=== PATIENT | female | born 1985 | race Caucasian/White ===

== ENCOUNTER 2016-06-02 12:10 | Inpatient (IN) | payer OTHER ==
[~2016-06-02] VITALS: Ht 165.1 cm; Wt 68.5 kg
[2016-06-02] MEDS ORDERED: IPRATROPIUM 0.5MG/ALBUTEROL 2.5MG INH SOL UD 3ML (DUONEB)(J7620) As Ordered ONE (12:57)
[2016-06-02] MEDS ORDERED: KETOROLAC 30 MG/ML VIAL (J1885) As Ordered ONE (13:03)
[2016-06-02] MEDS ORDERED: ONDANSETRON 4MG/2ML VIAL (J2405) As Ordered ONE (13:03)
[2016-06-02] MEDS ORDERED: predniSONE 20 MG TAB As Ordered ONE (13:03)
[2016-06-02] MEDS ORDERED: ACETAMINOPHEN 325 MG TAB As Ordered ONE (13:04)
--- NOTE | 2016-06-02 13:17 | REP ---
Clinical: Acute cough. Technique: PA and lateral. Findings: Basilar right upper lobe consolidation compatible with acute pneumonia. Cardiac silhouette is normal. No effusion. No pneumothorax. Left hemithorax clear. Skeletal structures intact. Impression: Right upper lobe consolidation compatible with acute pneumonia. Signed by Reinaldo Hudson MD 06/02/2016 01:09 P
[2016-06-02] MEDS ORDERED: cefTRIAXone SOD 1 GM VIAL (J0696) As Ordered ONE (13:37)
[2016-06-02 13:44] LABS: BASO % 0.5 % (0.0-1.0); EOS # 0.1 K/mm3 (0.0-0.50); EOS % 0.9 % (0.0-3.0); LARGE UNSTAINED CELL # 0.2 K/mm3 (0.0-0.4); LARGE UNSTAINED CELL % 2.2 % (0.0-4.0); LYMPH # 1.6 K/mm3 (1.5-4.5); LYMPH % 18.9 % (24.0-44.0); MEAN CORPUSCULAR HEMOGLOBIN 27.8 pg (27.0-33.0); MEAN CORPUSCULAR HGB CONC 33.3 g/dl (32.0-36.5); MEAN CORPUSCULAR VOLUME 83.5 fl (80.0-96.0); MONO # 0.7 K/mm3 (0.0-0.8); MONO % 9.6 % (0.0-5.0); NEUTROPHILS # 5.2 K/mm3 (1.8-7.7); NEUTROPHILS % 67.8 % (36.0-66.0); PLATELET COUNT, AUTOMATED 196 k/mm3 (150-450); RED CELL DISTRIBUTION WIDTH 13.7 % (11.5-14.5); WHITE BLOOD COUNT 7.7 K/mm3 (4.0-10.0)
[2016-06-02 14:01] LABS: CONTROL LINE MONO INT CTR LINE PRESENT
[2016-06-02 14:22] LABS: ALBUMIN 3.8 GM/DL (3.2-5.2); ALKALINE PHOSPHATASE 93 U/L (45-117); ALT/SGPT 23 U/L (12-78); ANION GAP 12 MEQ/L (8-16); AST/SGOT 15 U/L (15-37); BILIRUBIN,TOTAL 0.2 MG/DL (0.2-1.0); BLOOD UREA NITROGEN 12 MG/DL (7-18); CARBON DIOXIDE LEVEL 27 MEQ/L (21-32); CHLORIDE LEVEL 99 MEQ/L (98-107); CREATININE FOR GFR 0.67 MG/DL (0.55-1.02); GLOMERULAR FILTRATION RATE > 60.0 (>60); GLUCOSE, FASTING 105 MG/DL (70-105); POTASSIUM SERUM 3.8 MEQ/L (3.5-5.1); SODIUM LEVEL 138 MEQ/L (136-145); TOTAL PROTEIN 7.6 GM/DL (6.4-8.2)
[2016-06-02] MEDS ORDERED: ACET50TAOT PO (14:55)
[2016-06-02] MEDS ORDERED: ROBISYP5 PO (14:55)
[2016-06-02] MEDS ORDERED: IBUP40TA PO (14:55)
[2016-06-02] MEDS ORDERED: ONDANSETRON 4MG/2ML VIAL (J2405) IV PRN (16:00)
[2016-06-02] MEDS ORDERED: IPRATROPIUM 0.5MG/ALBUTEROL 2.5MG INH SOL UD 3ML (DUONEB)(J7620) NEB PRN (16:00)
[2016-06-02] MEDS ORDERED: ACETAMINOPHEN TAB 650MG DOSE (2X325MG) PO PRN (16:00)
[2016-06-02] MEDS ORDERED: AZITHROMYCIN 250 MG TAB As Ordered ONE (16:14)
--- NOTE | 2016-06-02 16:16 | HPEPDOC ---
General Date of Admission 06/02/16 Chief Complaint The patient is a 30-year-old female admitted with a reason for visit of COUGH. Source: Patient Exam Limitations: No limitations History of Present Illness 30[place]year-[place] significant past medical history presents to the ER with a chief complaint of worsening shortness of breath with associated productive cough. The patient notes that her symptoms have been present for the last 8 days and notes that her shortness of breath and productive cough have worsened. The patient states that she was seen by a primary care physician and was told to take Tylenol and Motrin for a possible viral upper respiratory tract infection. The patient does note that she had a temperature as high as 103 over the last 1 week at home. At this time, the patient denies any complaints of chest pain, palpitations, abdominal pain, nausea/vomiting, diarrhea, or any burning on urination. In the ER, a chest x-ray was consistent with a right upper lobe consolidation suggestive of pneumonia. Rapid flu and mono screen were negative in the ER. Group a strep testing is pending. We will admit the patient to the inpatient hospitalist service for treatment of community acquired pneumonia. Home Medications Scheduled PRN Acetaminophen (Acetaminophen) 500 Mg Tab 500 MG PO PRN PAIN (Reported) Guaifenesin/Dextromethorphan (Robitussin Dm 100-10 mg/5Ml) 1 Syp Syp 10 ML PO PRN COUGH (Reported) Ibuprofen (Ibuprofen) 400 Mg Tab 400 MG PO PRN PAIN (Reported) Allergies Coded Allergies: No Known Allergies (Unverified , 06/02/16) Past Medical History Medical History None Surgical History [place] tooth removal Family History Significant Family History: No pertinent family hx Social History * Smoker: non-smoker Alcohol: occationally Drugs: denies Review of Symptoms Other systems 10 point review of systems negative unless otherwise specified in HPI. Physical Examination ENT Exam: Positive: Atraumatic, Mucous membr. moist/pink Neck Exam: Negative: JVD Chest Exam: Positive: Diminished (diminished in the right upper lobe auscultation posteriorly), Rhonchi, Negative: Rales Heart Exam: Positive: Normal S1, Normal S2, Rate Normal Telemetry: Positive: Sinus Abdomen Exam: Positive: Soft, Negative: Tenderness Extremity Exam: Negative: Edema, Tenderness Laboratory Data Labs 24H Laboratory Tests 2 06/02/16 13:16: Blood Urea Nitrogen 12, Creatinine 0.67, Sodium Level 138, Potassium Level 3.8, Chloride Level 99, Carbon Dioxide Level 27, Calcium Level 9.0, Aspartate Amino Transf (AST/SGOT) 15, Alanine Aminotransferase (ALT/SGPT) 23, Alkaline Phosphatase 93, Total Bilirubin 0.2, Total Protein 7.6, Albumin 3.8, Albumin/ Globulin Ratio 1.00, Anion Gap 12, White Blood Count 7.7, Red Blood Count 4.67, Hemoglobin 13.0, Hematocrit 39.0, Mean Corpuscular Volume 83.5, Mean Corpuscular Hemoglobin 27.8, Mean Corpuscular Hemoglobin Concent 33.3, Red Cell Distribution Width 13.7, Platelet Count 196, Neutrophils (%) (Auto) 67.8H, Lymphocytes (%) (Auto) 18.9L, Monocytes (%) (Auto) 9.6H, Eosinophils (%) (Auto) 0.9, Basophils (%) (Auto) 0.5, Neutrophils # (Auto) 5.2, Lymphocytes # (Auto) 1.6, Monocytes # (Auto) 0.7, Eosinophils # (Auto) 0.1, Basophils # (Auto) 0.0, Glomerular Filtration Rate > 60.0, Lactic Acid Level 2.3*H, Large Unclassified Cells # 0.2, Large Unclassified Cells % 2.2, Monoscreen NEGATIVE CBC/BMP Laboratory Tests 06/02/16 13:16 Calcium Level 9.0, Aspartate Amino Transf (AST/SGOT) 15, Alanine Aminotransferase (ALT/SGPT) 23, Alkaline Phosphatase 93, Total Bilirubin 0.2, Total Protein 7.6, Albumin 3.8, Red Blood Count 4.67, Mean Corpuscular Volume 83.5, Mean Corpuscular Hemoglobin 27.8, Mean Corpuscular Hemoglobin Concent 33.3 , Red Cell Distribution Width 13.7, Neutrophils (%) (Auto) 67.8 H, Lymphocytes ( %) (Auto) 18.9 L, Monocytes (%) (Auto) 9.6 H, Eosinophils (%) (Auto) 0.9, Basophils (%) (Auto) 0.5, Neutrophils # (Auto) 5.2, Lymphocytes # (Auto) 1.6, Monocytes # (Auto) 0.7, Eosinophils # (Auto) 0.1, Basophils # (Auto) 0.0 [facility] 06/02/16 Blood Culture, Received Pending 06/02/16 Blood Culture, Received Pending 06/02/16 Group A Streptococcus Screen (ERIKA), Received Pending 06/02/16 Influenza Virus Type A Antigen - Final, Complete 06/02/16 Influenza Virus Type B Antigen - Final, Complete Assessment/Plan Problems: (1) Community acquired pneumonia Status: Acute Response to Treatment: Stable Problem Text: Chest x-ray suggestive of right upper lobe consolidation consistent with pneumonia Rapid flu, monoscreen negative in the ER, group a strep testing pending Respiratory panel ordered Blood, sputum cultures ordered We will start the patient on Rocephin and azithromycin for community acquired pneumonia DuoNeb's every 4 hours as needed Tylenol when necessary for fever We will continue to monitor the patient's status. (2) Lactic acidosis Status: Acute Problem Text: Slightly elevated lactic acid level of 2.3 likely secondary to above IV fluid hydration ordered We'll repeat lactate level. Plan / VTE VTE Prophylaxis Ordered?: Yes JULIET GONZALEZ MD Jun 02, 2016 16:16
--- NOTE | 2016-06-02 17:16 | EDDOCDS ---
Nurse's Notes [facility] Name: Nikole Stewart Age: 30 yrs Sex: Female : 1985 Arrival Date: 06/02/2016 Time: 12:10 Bed I2 / M2 Private MD: NO PRIMARY PHYSICIAN, . Diagnosis: Pneumonia, unspecified organism-Right Upper Lobe, Elevated Lactic Acid Presentation: 06/02 12:13 Presenting complaint: Patient states: Cough with fever and chills for 8 days. Adult dwg Sepsis Screening: The patient does not have new or worsening altered mentation. Patient's respiratory rate is less than 22. Systolic blood pressure is greater than 100. Patient has a qSOFA score of 0- Negative Sepsis Screen. Suicide/Homicide risk assessment- the patient denies having any suicidal and/or homicidal ideations and does not present with any other emotional, behavioral or mental health complaints. 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 Transition of care: patient was not received from another setting of care. 12:13 Method Of Arrival: Walkin/Carried/Asstd dwg 12:13 Acuity: NILSA Level 3 mlb1 12:27 Acuity level changed due to complexity of care. mlb1 Triage Assessment: 12:16 General: Appears uncomfortable. Pain: Pain currently is 7 out of 10 on a pain scale. Pt dwg Declines HIV testing. 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 OTC cough meds (Last dose: 06/02/2016 01:00) 2. Tylenol 325 mg Oral tab 2 tabs as needed (Last dose: 06/02/2016 01:00) 3. Motrin 400 mg Oral tab as needed (Last dose: 06/02/2016 01:00) - PMHx: none; - PSHx: [place] teeth extraction; - Social history: Smoking status: Patient states was never smoker of tobacco. No barriers to communication noted, The patient speaks fluent Upper Sorbian. - Family history: Not pertinent. - : The pt / caregiver states he / she is not on anticoagulants. Home medication list is obtained from the patient. - Exposure Risk Screening:: None identified. Screenin:31 Screening information is obtained from the patient. Fall risk: No risks identified. dls Assistance ADL's: requires no assistance with activities of daily living. Abuse/DV Screen: The patient / caregiver reports he/she is: not in a situation that causes fear, pain or injury. Nutritional screening: No deficits noted. Advance Directives: Currently, there is no health care proxy. There is no active DNR order. There is no living will. 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 Advance directive information has not previously been placed in an [facility] medical record. home support is adequate. Assessment: 13:30 General: Appears in no apparent distress, Behavior is cooperative. General: receiving ms2 nebulizer tx's. General: harsh cough noted. Neurological: Level of Consciousness is awake, alert, obeys commands. Neurological: Level of Consciousness is awake, alert, obeys commands. Respiratory: No deficits noted. Airway is patent Respiratory effort is even, unlabored, Respiratory pattern is regular, symmetrical. Derm: Skin is pink, warm & dry. Musculoskeletal: Range of motion intact in all extremities. 14:28 General: IV bolus infusing site right antecubital remains patent and clear pt states dls feeling improved.. 14:58 General: Dr Mariano here to examine pt and write admission orders.. dls 16:38 General: IV bolus infused site remains cleat pt ambulatory to bathroom urine spec dls obtained as well as respiratory panel. NS infusing \T\ 80cc /hr per admission orders pt medicated po also per admission order. Pt has occasional cough sputum cup given for spec. Vital signs remain stable awaiting bed assingment.. Vital Signs: 12:11 BP 148 / 80; Pulse 99; Resp 18; Temp 102.0(O); Pulse Ox 99% ; Weight 65.77 kg; Height 5 elp ft. 5 in. (165.10 cm); Pain 6/10; 14:31 BP 118 / 60; Pulse 111; Resp 18; Temp 99.9(O); Pulse Ox 97% on R/A; Pain 4/10; jrd 16:46 BP 116 / 62; Pulse 79; Resp 16; Temp 98.1(O); Pain 3/10; jrd 12:11 Body Mass Index 24.13 (65.77 kg, 165.10 cm) elp Vitals: 12:11 Log In Time: June 02, 2016 at 12:09. elp 12:51 Strep Screen is obtained and tested: Negative, a GATSNEG culture is ordered in [facility] rs3 and sent. ED Course: 12:10 Patient visited by Marisa Fonseca PCA. elp 12:10 Patient moved to Waiting elp 12:11 NO PRIMARY PHYSICIAN, . is Private Physician. elp 12:12 Patient visited by Marisa Fonseca PCA. elp 12:12 Patient moved to Pre RCE elp 12:14 Triage Initiated dwg 12:19 Patient moved to Triage 3 rs3 12:26 Sabina Joseph PA-C is PHCP. ef1 12:26 Makenna Childs MD is Attending Physician. ef1 12:28 Patient visited by Sabina Joseph PA-C. ef1 12:47 Patient moved to I2 / M2 rn1 12:51 -Influenza A&B Rapid Antigen - Nose Sent. rs3 12:59 Patient visited by Zaid Delacruz,ROSE. ms2 13:25 Chest, 2 View (pa\E\lat) Returned. EDMS 13:28 Inserted peripheral IV: 20gauge IV in left antecubital area Patient tolerated the ms2 procedure well. No procedures done that require assistance. 13:30 Patient visited by Sabina Joseph PA-C. ef1 13:30 -Blood Culture Sent. ms2 13:30 BLOOD CULTURES Sent. ms2 13:31 Lactic Acid (Cedeño tube on ice) Sent. ms2 13:31 Complete Comphrensive Metabolic Sent. ms2 13:31 CBC with Diff Sent. ms2 13:31 Monoscreen Sent. ms2 13:35 Patient visited by Zaid Delacruz,ROSE. ms2 14:06 Patient visited by Sabina Joseph PA-C. ef1 14:17 [facility] Payment Agreement was scanned into [employer] and attached to record. jp5 14:31 Patient name changed from Nikole\S\\S\Stewart\S\ to Nikole\S\Samina\S\Stewart. EDMS 14:31 The patient / caregiver is instructed regarding the plan of care and ED course. dls 14:32 Patient visited by Sabina Joseph PA-C. ef1 14:32 Patient visited by Carlos Lorenz PCA. jrd 14:39 Roderick Mariano is Hospitalizing Provider. ef1 16:31 RESPIRATORY PANEL Sent. dls 16:47 Patient visited by Carlos Lorenz PCA. jrd Administered Medications: 03:20 Drug: Acetaminophen 975 mg [acetaminophen 325 mg tablet (3 tabs)] Route: PO; ms2 12:55 Drug: Albuterol-Ipratropium 1 neb [ipratropium-albuterol 0.5 mg-3 mg(2.5 mg base)/3 mL js11 nebulization soln (1 neb)] Route: Nebulizer; 13:15 Drug: Albuterol-Ipratropium 1 neb [ipratropium-albuterol 0.5 mg-3 mg(2.5 mg base)/3 mL js11 nebulization soln (1 neb)] Route: Nebulizer; 13:24 Drug: NS 0.9% 1000 ml [sodium chloride 0.9 % intravenous solution] Route: IV; Rate: ms2 bolus; Site: right antecubital; 13:25 Drug: Ondansetron 4 mg Route: IVP; Site: right antecubital; ms2 13:26 Drug: ketorolac 30 mg [ketorolac 30 mg/mL (1 mL) injection solution (1 mL)] Route: IVP; ms2 Site: right antecubital; 13:28 Drug: Albuterol-Ipratropium 1 neb [ipratropium-albuterol 0.5 mg-3 mg(2.5 mg base)/3 mL js11 nebulization soln (1 neb)] Route: Nebulizer; 13:28 Drug: predniSONE 60 mg [prednisone 20 mg tablet (3 tabs)] Route: PO; ms2 13:42 Drug: cefTRIAXone 1 grams Route: IVPB; Infused Over: 30 mins; Site: right antecubital; ms2 14:30 Follow up: Response: No Adverse Reaction; IV Status: Completed infusion dls 15:10 Drug: NS 0.9% 1000 ml [sodium chloride 0.9 % intravenous solution] Route: IV; Rate: dls bolus; Site: right antecubital; 16:37 Follow up: IV Intake: 2000ml dls 16:34 Drug: NS 0.9% 1000ml at 80cc/hr 1000 ml Route: IV; Rate: 80 mL/hr; Site: right dls antecubital; 16:36 Drug: azithromycin 500 mg [azithromycin 250 mg tablet (2 tabs)] Route: PO; dls Intake: 16:37 IV: 2000.00ml; Total: 2000.00ml. dls RT: 12:55 Initial Med Neb Given as ordered Patient was instructed and evaluated on procedure js11 Patient tolerated procedure well without adverse effect. Respiratory: Breath sounds are diminished bilaterally. 13:15 Subsequent Med Neb Given as ordered Patient tolerated procedure well without adverse js11 effect. Respiratory: Breath sounds are diminished bilaterally. 13:28 Subsequent Med Neb Given as ordered Patient tolerated procedure well without adverse js11 effect. Respiratory: Breath sounds are diminished bilaterally. Order Results: Lab Order: -Influenza A&B Rapid Antigen - Nose; SPEC'M 06/02/16 12:43 Test: INFLUENZA A RAPID SCR by ICA; Value: INFLUENZA A RESULTS NEGATIVE; Status: F Test: INFLUENZA A RAPID SCR by ICA; Value: Comments:; Status: F Test: INFLUENZA B RAPID SCR by ICA; Value: INFLUENZA B RESULTS NEGATIVE; Status: F Test Note: ; The Influenza test is a direct rapid immunoassay for the qualitative detection of Influenza viral antigen. Cell culture (Viral Culture) testing should be considered to confirm NEGATIVE results and to assist in detecting other viruses that can provide similar clinical symptoms. Please contact the lab within 24 hours ([phone]) if confirmatory testing is desired. Lab Order: Monoscreen; SPEC'M 06/02/16 13:16 Test: MONO SCRN; Value: NEGATIVE; Range: NEGATIVE; Status: F Lab Order: CBC with Diff; SPEC'M 06/02/16 13:16 Test: WHITE BLOOD COUNT; Value: 7.7; Range: 4.0-10.0; Units: K/mm3; Status: F Test: RED BLOOD COUNT; Value: 4.67; Range: 4.00-5.40; Units: M/mm3; Status: F Test: HEMOGLOBIN; Value: 13.0; Range: 12.0-16.0; Units: g/dl; Status: F Test: HEMATOCRIT; Value: 39.0; Range: 36.0-47.0; Units: %; Status: F Test: MEAN CORPUSCULAR VOLUME; Value: 83.5; Range: 80.0-96.0; Units: fl; Status: F Test: MEAN CORPUSCULAR HEMOGLOBIN; Value: 27.8; Range: 27.0-33.0; Units: pg; Status: F Test: MEAN CORPUSCULAR HGB CONC; Value: 33.3; Range: 32.0-36.5; Units: g/dl; Status: F Test: RED CELL DISTRIBUTION WIDTH; Value: 13.7; Range: 11.5-14.5; Units: %; Status: F Test: PLATELET COUNT, AUTOMATED; Value: 196; Range: 150-450; Units: k/mm3; Status: F Test: NEUTROPHILS %; Value: 67.8; Range: 36.0-66.0; Abnormal: Above high normal; Units: %; Status: F Test: LYMPH %; Value: 18.9; Range: 24.0-44.0; Abnormal: Below low normal; Units: %; Status: F Test: MONO %; Value: 9.6; Range: 0.0-5.0; Abnormal: Above high normal; Units: %; Status: F Test: EOS %; Value: 0.9; Range: 0.0-3.0; Units: %; Status: F Test: BASO %; Value: 0.5; Range: 0.0-1.0; Units: %; Status: F Test: LARGE UNSTAINED CELL %; Value: 2.2; Range: 0.0-4.0; Units: %; Status: F Test: NEUTROPHILS #; Value: 5.2; Range: 1.8-7.7; Units: K/mm3; Status: F Test: LYMPH #; Value: 1.6; Range: 1.5-4.5; Units: K/mm3; Status: F Test: MONO #; Value: 0.7; Range: 0.0-0.8; Units: K/mm3; Status: F Test: EOS #; Value: 0.1; Range: 0.0-0.50; Units: K/mm3; Status: F Test: BASO #; Value: 0.0; Range: 0.0-0.2; Units: K/mm3; Status: F Test: LARGE UNSTAINED CELL #; Value: 0.2; Range: 0.0-0.4; Units: K/mm3; Status: F Lab Order: Complete Comphrensive Metabolic; SPEC'M 06/02/16 13:16 Test: GLUCOSE, FASTING; Value: 105; Range: 70-105; Units: MG/DL; Status: F Test: BLOOD UREA NITROGEN; Value: 12; Range: 7-18; Units: MG/DL; Status: F Test: CREATININE FOR GFR; Value: 0.67; Range: 0.55-1.02; Units: MG/DL; Status: F Test: SODIUM LEVEL; Range: 136-145; Units: MEQ/L; Status: I Test: POTASSIUM SERUM; Range: 3.5-5.1; Units: MEQ/L; Status: I Test: CHLORIDE LEVEL; Range: 98-107; Units: MEQ/L; Status: I Test: CARBON DIOXIDE LEVEL; Range: 21-32; Units: MEQ/L; Status: I Test: ANION GAP; Range: 8-16; Units: MEQ/L; Status: I Test: CALCIUM LEVEL; Range: 8.5-10.1; Units: MG/DL; Status: I Test: AST/SGOT; Range: 15-37; Units: U/L; Status: I Test: ALT/SGPT; Range: 12-78; Units: U/L; Status: I Test: ALKALINE PHOSPHATASE; Range: 45-117; Units: U/L; Status: I Test: BILIRUBIN,TOTAL; Range: 0.2-1.0; Units: MG/DL; Status: I Test: TOTAL PROTEIN; Range: 6.4-8.2; Units: GM/DL; Status: I Test: ALBUMIN; Range: 3.2-5.2; Units: GM/DL; Status: I Test: ALBUMIN/GLOBULIN RATIO; Range: 1.00-1.93; Status: I Test: GLOMERULAR FILTRATION RATE; Value: > 60.0; Range: >60; Status: F Test: SODIUM LEVEL; Value: 138; Range: 136-145; Units: MEQ/L; Status: F Test: POTASSIUM SERUM; Value: 3.8; Range: 3.5-5.1; Units: MEQ/L; Status: F Test: CHLORIDE LEVEL; Value: 99; Range: 98-107; Units: MEQ/L; Status: F Test: CARBON DIOXIDE LEVEL; Value: 27; Range: 21-32; Units: MEQ/L; Status: F Test: ANION GAP; Value: 12; Range: 8-16; Units: MEQ/L; Status: F Test: CALCIUM LEVEL; Value: 9.0; Range: 8.5-10.1; Units: MG/DL; Status: F Test: AST/SGOT; Value: 15; Range: 15-37; Units: U/L; Status: F Test: ALT/SGPT; Value: 23; Range: 12-78; Units: U/L; Status: F Test: ALKALINE PHOSPHATASE; Value: 93; Range: 45-117; Units: U/L; Status: F Test: BILIRUBIN,TOTAL; Value: 0.2; Range: 0.2-1.0; Units: MG/DL; Status: F Test: TOTAL PROTEIN; Value: 7.6; Range: 6.4-8.2; Units: GM/DL; Status: F Test: ALBUMIN; Value: 3.8; Range: 3.2-5.2; Units: GM/DL; Status: F Test: ALBUMIN/GLOBULIN RATIO; Value: 1.00; Range: 1.00-1.93; Status: F Test Note: ; Units are mL/min/1.73 m2 Chronic Kidney Disease Staging per NKF: Stage I & II GFR >=60 Normal to Mildly Decreased Stage III GFR 30-59 Moderately Decreased Stage IV GFR 15-29 Severely Decreased Stage V GFR <15 Very Little GFR Left ESRD GFR <15 on TISSUE COORDINATOR Lab Order: Lactic Acid (Cedeño tube on ice); SPEC'M 06/02/16 13:16 Test: LACTIC ACID LEVEL, LACTATE; Value: 2.3; Range: 0.4-2.0; Abnormal: Above upper panic limits; Units: MMOL/L; Status: F Lab Order: UA; SPEC'M 06/02/16 16:15 Test: APPEARANCE, URINE; Value: CLEAR; Range: CLEAR; Status: F Test: COLOR, URINE; Value: YELLOW; Range: YELLOW; Status: F Test: PH,URINE; Value: 5.0; Range: 5.0-9.0; Units: UNITS; Status: F Test: SPECIFIC GRAVITY URINE AUTO; Value: 1.006; Range: 1.002-1.035; Status: F Test: PROTEIN, URINE AUTO; Value: NEGATIVE; Range: NEGATIVE; Units: mg/dL; Status: F Test: GLUCOSE, URINE (UA) AUTO; Value: NEGATIVE; Range: NEGATIVE; Units: mg/dL; Status: F Test: KETONE, URINE AUTO; Value: NEGATIVE; Range: NEGATIVE; Units: mg/dL; Status: F Test: UROBILINOGEN, URINE AUTO; Value: 0.2; Range: 0.0-2.0; Units: mg/dL; Status: F Test: BILIRUBIN, URINE AUTO; Value: NEGATIVE; Range: NEGATIVE; Status: F Test: NITRITE, URINE AUTO; Value: NEGATIVE; Range: NEGATIVE; Status: F Test: LEUKOCYTE ESTERASE, URINE AUTO; Value: NEGATIVE; Range: NEGATIVE; Status: F Test: BLOOD, URINE BLOOD; Value: NEGATIVE; Range: NEGATIVE; Status: F Test: WBC, URINE AUTO; Value: 1; Range: 0-3; Units: /HPF; Status: F Test: RBC, URINE AUTO; Value: 3; Range: 0-3; Units: /HPF; Status: F Test: BACTERIA, URINE AUTO; Value: 1+; Range: NEGATIVE; Abnormal: Above high normal; Status: F Test: SQUAMOUS EPITHELIAL CELL UR AU; Value: 3; Range: 0-6; Units: /HPF; Status: F Test: MUCUS, URINE; Value: SMALL; Range: NEGATIVE; Status: F Test: HYALINE CAST, URINE AUTO; Value: 0; Range: 0-1; Units: /LPF; Status: F Radiology Order: Chest, 2 View (pa\E\lat) Test: Chest, 2 View (pa\E\lat) REASON FOR EXAMINATION: Cough; Clinical: Acute cough.; ; Technique: PA and lateral.; ; Findings:; Basilar right upper lobe consolidation compatible with acute pneumonia. Cardiac; silhouette is normal. No effusion. No pneumothorax. Left hemithorax clear.; Skeletal structures intact.; ; Impression:; Right upper lobe consolidation compatible with acute pneumonia.; ; ; Signed by; Reinaldo Hudson MD 06/02/2016 01:09 P; Outcome: 14:40 Decision to Hospitalize by Provider. ef1 17:13 Discharge Assessment: Patient awake, alert and oriented x 3. No cognitive and/or dls functional deficits noted. Patient verbalized understanding of disposition instructions. patient administered narcotics - no. The following High Risk Discharge criteria are identified: None. Admitted to Med/Surg accompanied by tech, via stretcher, with chart. Condition: stable Condition: improved. Discharge instructions given to. No special radiology studies were completed. Admission hand-off: Report Faxed Fax receipt verified by [place]ma. Property :Personal belongings accompany Pt. 17:15 Patient left the ED. dls Signatures: Dispatcher [employer] EDZaid SanchesRN RN ms2 Saturnino Reddy RN RN milesg Jade Zhong RN RN dls Cr Yousif RN RN mlb1 Sabina Joseph, PAAshvinC PA-C ef1 Kady SandersRN RN rs3 Robbie Julio js11 Marisa Fonseca, BLOCKER AND CUTTER CONTACT LENS BLOCKER AND CUTTER CONTACT LENS Carlos Hilario, BLOCKER AND CUTTER CONTACT LENS BLOCKER AND CUTTER CONTACT LENS Benito Hughes rn1 Durga Franks jp5 Corrections: (The following items were deleted from the chart) 12:27 12:13 Acuity: NILSA Level 5 fly mlb1 MTDJames
--- NOTE | 2016-06-02 17:16 | EDDOCDS ---
Physician Documentation [facility] Name: Nikole Stewart Age: 30 yrs Sex: Female : 1985 Arrival Date: 06/02/2016 Time: 12:10 Bed I2 / M2 Private MD: NO PRIMARY PHYSICIAN, . Disposition: 06/02/16 14:40 Hospitalization ordered by Roderick Mariano for Inpatient Admission. Preliminary diagnosis is Pneumonia, unspecified organism - Right Upper Lobe, Elevated Lactic Acid. - Bed requested for 4 [place]. - Status is Inpatient Admission. dls - Condition is Stable. - Problem is new. - Symptoms have improved. Historical: - Allergies: no known allergies; - Home Meds: 1. OTC cough meds (Last dose: 06/02/2016 01:00) 2. Tylenol 325 mg Oral tab 2 tabs as needed (Last dose: 06/02/2016 01:00) 3. Motrin 400 mg Oral tab as needed (Last dose: 06/02/2016 01:00) - PMHx: none; - PSHx: [place] teeth extraction; - Social history: Smoking status: Patient states was never smoker of tobacco. No barriers to communication noted, The patient speaks fluent Slovak. - Family history: Not pertinent. - : The pt / caregiver states he / she is not on anticoagulants. Home medication list is obtained from the patient. - Exposure Risk Screening:: None identified. 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 5 in. (165.10 cm); Pain 6/10; 14:31 BP 118 / 60; Pulse 111; Resp 18; Temp 99.9(O); Pulse Ox 97% on R/A; Pain 4/10; jrd 16:46 BP 116 / 62; Pulse 79; Resp 16; Temp 98.1(O); Pain 3/10; jrd 12:11 Body Mass Index 24.13 (65.77 kg, 165.10 cm) elp MDM: 12:41 Acetaminophen Tablet 975 mg PO once ordered. ef1 12:41 Fluid Challenge ordered. ef1 12:41 Strep Screen, Nursing ordered. ef1 12:41 Obtain sample by nasopharyngeal swab ordered. ef1 12:41 IV Saline Lock ordered. ef1 12:41 NS 0.9% 1000 ml IV at bolus once ordered. ef1 12:41 ketorolac 30 mg IVP once ordered. ef1 12:41 Ondansetron 4 mg IVP once ordered. ef1 12:41 Albuterol-Ipratropium 1 neb Nebulizer every 20 minutes x3 ordered. ef1 12:41 Call Respiratory ordered. ef1 12:41 predniSONE 60 mg PO once; administer with food or milk ordered. ef1 12:41 -Blood Culture (Adults Only), peripheral from different site, or from device/port/PICC ef1 etc. if present ordered. 12:42 -Influenza A&B Rapid Antigen - Nose Ordered. EDMS 12:42 Monoscreen Ordered. EDMS 12:42 CBC with Diff Ordered. EDMS 12:42 Complete Comphrensive Metabolic Ordered. EDMS 12:42 Lactic Acid (Cedeño tube on ice) Ordered. EDMS 12:42 UA Ordered. EDMS 12:42 Urine Culture Ordered. EDMS 12:42 Chest, 2 View (pa\E\lat) Ordered. EDMS 12:43 -Blood Culture Ordered. EDMS 12:48 Call Respiratory complete. jrd 12:50 -Blood Culture (Adults Only), peripheral from different site, or from device/port/PICC jrd etc. if present complete. 12:51 BLOOD CULTURES Ordered. EDMS 12:51 GATS (NEGATIVE STREP SCREEN) Ordered. EDMS 13:30 -Influenza A&B Rapid Antigen - Nose Reviewed. ef1 13:30 Chest, 2 View (pa\E\lat) Reviewed. ef1 13:35 cefTRIAXone 1 grams IVPB once over 30 mins; dilute in 50mL of NS or D5W ordered. ef1 14:17 [facility] [place] [facility] Payment Agreement was scanned into [employer] and attached to record. jp5 14:17 Financial registration complete. jp5 14:26 NS 0.9% 1000 ml IV at bolus once ordered. ef1 14:26 CBC with Diff Reviewed. ef1 14:26 Lactic Acid (Cedeño tube on ice) Reviewed. ef1 14:26 Monoscreen Reviewed. ef1 14:26 Complete Comphrensive Metabolic Reviewed. ef1 14:33 BED REQUEST+ADM ordered. EDMS 15:54 Admission / Observation Status ordered. EDMS 15:54 REGULAR DIET ordered. EDMS 15:54 RESPIRATORY PANEL Ordered. EDMS 15:57 LACTIC ACID LEVEL, LACTATE Ordered. EDMS 16:14 SPUTUM CULTURE AND GRAM STAIN Ordered. EDMS 16:34 NS 0.9% 1000ml at 80cc/hr 1000 ml IV at 80 mL/hr Per protocol ordered. dls 16:36 azithromycin 500 mg PO once ordered. dls Administered Medications: 03:20 Drug: Acetaminophen 975 mg [acetaminophen 325 mg tablet (3 tabs)] Route: PO; ms2 12:55 Drug: Albuterol-Ipratropium 1 neb [ipratropium-albuterol 0.5 mg-3 mg(2.5 mg base)/3 mL js11 nebulization soln (1 neb)] Route: Nebulizer; 13:15 Drug: Albuterol-Ipratropium 1 neb [ipratropium-albuterol 0.5 mg-3 mg(2.5 mg base)/3 mL js11 nebulization soln (1 neb)] Route: Nebulizer; 13:24 Drug: NS 0.9% 1000 ml [sodium chloride 0.9 % intravenous solution] Route: IV; Rate: ms2 bolus; Site: right antecubital; 13:25 Drug: Ondansetron 4 mg Route: IVP; Site: right antecubital; ms2 13:26 Drug: ketorolac 30 mg [ketorolac 30 mg/mL (1 mL) injection solution (1 mL)] Route: IVP; ms2 Site: right antecubital; 13:28 Drug: Albuterol-Ipratropium 1 neb [ipratropium-albuterol 0.5 mg-3 mg(2.5 mg base)/3 mL js11 nebulization soln (1 neb)] Route: Nebulizer; 13:28 Drug: predniSONE 60 mg [prednisone 20 mg tablet (3 tabs)] Route: PO; ms2 13:42 Drug: cefTRIAXone 1 grams Route: IVPB; Infused Over: 30 mins; Site: right antecubital; ms2 14:30 Follow up: Response: No Adverse Reaction; IV Status: Completed infusion dls 15:10 Drug: NS 0.9% 1000 ml [sodium chloride 0.9 % intravenous solution] Route: IV; Rate: dls bolus; Site: right antecubital; 16:37 Follow up: IV Intake: 2000ml dls 16:34 Drug: NS 0.9% 1000ml at 80cc/hr 1000 ml Route: IV; Rate: 80 mL/hr; Site: right dls antecubital; 16:36 Drug: azithromycin 500 mg [azithromycin 250 mg tablet (2 tabs)] Route: PO; dls Signatures: Dispatcher [employer] Saturnino Agosto RN RN [facility] Wilmer , ROSE Lee RN Jade Purcell RN RN dls Feola, Sabina, PA-C PA-C ef1 Carlos Lorenz, DECORATOR CONSULTANT DECORATOR CONSULTANT jrd Durga Franks jp5 Zaid Delacruz RN ms2 Robbie Julio js11 The chart was reviewed and I authenticate all verbal orders and agree with the evaluation and treatment provided.Attachments: 14:17 COUNT INCLUDES THE [facility] Payment Agreement jp5 MTDD
[2016-06-02 17:20] VITALS: BP 104/61
[2016-06-02] MEDS: NS 1,000 ML IV SCH ×2 (17:40→22:01)
[2016-06-02] MEDS: IPRATROPIUM 0.5MG/ALBUTEROL 2.5MG INH SOL UD 3ML (DUONEB)(J7620) NEB SCH ×2 (19:34→22:56)
[2016-06-02 22:00] VITALS: BP_SYST 109; BP_SYST 117; BP_DIAS 67; BP_DIAS 68
[2016-06-02] MEDS ORDERED: NS 1,000 ML IV ONE (22:00)
[2016-06-02] MEDS: KETOROLAC 30 MG/ML VIAL (J1885) IV SCH (22:00)
[2016-06-03] MEDS: NS 1,000 ML IV SCH ×4 (01:05→21:11)
[2016-06-03] MEDS: cefTRIAXone SOD 1 GM in D5W MINI-BAG PLUS 50 ML IV SCH ×2 (01:05→13:17)
[2016-06-03] MEDS: guaiFENesin DM LIQ 10ML UD PO PRN (01:11)
[2016-06-03 06:00] VITALS: BP 116/64
[2016-06-03] MEDS: KETOROLAC 30 MG/ML VIAL (J1885) IV SCH ×3 (06:02→21:11)
[2016-06-03 06:26] LABS: MEAN CORPUSCULAR HEMOGLOBIN 27.7 pg (27.0-33.0); MEAN CORPUSCULAR HGB CONC 32.7 g/dl (32.0-36.5); MEAN CORPUSCULAR VOLUME 84.9 fl (80.0-96.0); RED CELL DISTRIBUTION WIDTH 12.8 % (11.5-14.5); WHITE BLOOD COUNT 4.2 K/mm3 (4.0-10.0)
[2016-06-03 06:38] LABS: ANION GAP 8 MEQ/L (8-16); BLOOD UREA NITROGEN 8 MG/DL (7-18); CALCIUM LEVEL 7.7 MG/DL (8.5-10.1); CARBON DIOXIDE LEVEL 24 MEQ/L (21-32); CHLORIDE LEVEL 108 MEQ/L (98-107); CREATININE FOR GFR 0.37 MG/DL (0.55-1.02); GLOMERULAR FILTRATION RATE > 60.0 (>60); GLUCOSE, FASTING 100 MG/DL (70-105); POTASSIUM SERUM 4.1 MEQ/L (3.5-5.1); SODIUM LEVEL 140 MEQ/L (136-145)
[2016-06-03] MEDS: IPRATROPIUM 0.5MG/ALBUTEROL 2.5MG INH SOL UD 3ML (DUONEB)(J7620) NEB SCH ×4 (07:45→22:27)
[2016-06-03] MEDS: AZITHROMYCIN 250 MG TAB PO SCH (08:58)
[2016-06-03] MEDS ORDERED: CALCIUM GLUCONATE 1,000 MG in D5W MINI-BAG PLUS 100 ML IV ONE (09:00)
[2016-06-03 14:00] VITALS: BP 108/72
--- NOTE | 2016-06-03 14:08 | IPNPDOC ---
Text Note Date of Service The patient was seen on 06/03/16 at 14:01. NOTE Subjective: Pt states her SOB has improved. Denies CP/Palpitation. Objective: Vitals: (see below) General: No acute distress, laying comfortably in bed. HEENT: Moist mucous membranes. Neck: No JVD or lymphadenopathy Cardiac: RRR, No murmurs Pulm: Coarse crackles at the right. No wheezing, no rhonchi Abd: NT/ND + BS Ext: No edema or cyanosis Labs (see below) Images: CXR 06/02/16 Impression: Right upper lobe consolidation compatible with acute pneumonia. Assessment/Plan CAP - On azithromycin and Rocephin. Lactic acid improving. No leukocytosis, hypoxia, tachycardia. Cont IVF. Rapid flu negative. Blood/sputum cx pending. DVT prophy: Enoxaparin Dispo: Plan to d/c in the next 24 hours if continues to clinically improve. VS,Fishbone, I+O VS, Fishbone, I+O Laboratory Tests 06/03/16 05:52 Calcium Level 7.7 L, Red Blood Count 3.50 L, Mean Corpuscular Volume 84.9, Mean Corpuscular Hemoglobin 27.7, Mean Corpuscular Hemoglobin Concent 32.7, Red Cell Distribution Width 12.8 Vital Signs Date Time Temp Pulse Resp B/P Pulse Ox O2 Delivery O2 Flow Rate FiO2 06/03/16 09:00 Room Air 06/03/16 06:00 97.6 67 19 116/64 97 I&O- Last 24 Hours up to 6 AM 06/03/16 05:59 Intake Total 2000 ml Output Total 0 ml Balance 2000 ml NITZA MENDOZA MD Jun 03, 2016 14:08
[2016-06-03] MEDS: ENOXAPARIN 40 MG/0.4 ML SYRINGE (J1650) SC SCH (14:50)
[2016-06-03 22:00] VITALS: BP 97/54
[2016-06-04] MEDS: cefTRIAXone SOD 1 GM in D5W MINI-BAG PLUS 50 ML IV SCH (02:02)
[2016-06-04] MEDS: guaiFENesin DM LIQ 10ML UD PO PRN (05:52)
[2016-06-04] MEDS: KETOROLAC 30 MG/ML VIAL (J1885) IV SCH (05:52)
[2016-06-04 06:00] VITALS: BP 113/69
[2016-06-04 06:01] LABS: MEAN CORPUSCULAR HEMOGLOBIN 27.6 pg (27.0-33.0); MEAN CORPUSCULAR HGB CONC 32.8 g/dl (32.0-36.5); MEAN CORPUSCULAR VOLUME 84.2 fl (80.0-96.0); RED CELL DISTRIBUTION WIDTH 14.1 % (11.5-14.5); WHITE BLOOD COUNT 7.7 K/mm3 (4.0-10.0)
[2016-06-04 06:17] LABS: ANION GAP 9 MEQ/L (8-16); BLOOD UREA NITROGEN 6 MG/DL (7-18); CALCIUM LEVEL 7.9 MG/DL (8.5-10.1); CARBON DIOXIDE LEVEL 24 MEQ/L (21-32); CHLORIDE LEVEL 112 MEQ/L (98-107); CREATININE FOR GFR 0.43 MG/DL (0.55-1.02); GLOMERULAR FILTRATION RATE > 60.0 (>60); GLUCOSE, FASTING 83 MG/DL (70-105); MAGNESIUM LEVEL 1.8 MG/DL (1.8-2.4); SODIUM LEVEL 145 MEQ/L (136-145)
[2016-06-04] MEDS: NS 1,000 ML IV SCH (07:35)
[2016-06-04] MEDS: ENOXAPARIN 40 MG/0.4 ML SYRINGE (J1650) SC SCH (08:03)
[2016-06-04] MEDS: AZITHROMYCIN 250 MG TAB PO SCH (08:08)
[2016-06-04] MEDS: IPRATROPIUM 0.5MG/ALBUTEROL 2.5MG INH SOL UD 3ML (DUONEB)(J7620) NEB SCH (08:09)
[2016-06-04] MEDS ORDERED: LEVA500T PO (11:13)
--- NOTE | 2016-06-04 15:12 | DS.PDOC ---
Discharge Summary Date Of Admission Jun 02, 2016 at 15:47 Date of Discharge Jun 04, 2016 at 11:32 Discharge Summary PRIMARY CARE PHYSICIAN: ATTENDING TODAY: Nitza Deutsch MD SPECIALIST/CONSULTATIONS INVOLVED DURING STAY: None. PROCEDURES PERFORMED DURING STAY: None. COMPLICATIONS/CHIEF COMPLAINT: Community Aquired Pneumonia ADMISSION/DISCHARGE DIAGNOSES: 1. Community-acquired pneumonia HISTORY OF PRESENT ILLNESS/HOSPITAL COURSE: This is a 30-year-old female with no significant past medical history who presents complaining of for some shortness of breath. Patient states her symptoms started 8 days prior to admission and had a productive cough as well as shortness of breath is progressively getting worse. Patient went to her primary care physician was told to take Tylenol and Motrin for a possible upper respiratory tract infection that's viral nature. Patient notes that she's had a temperature of 103 over the last week while she was at home. Patient denied chest pain/restless/palpitations. No nausea/vomiting/abdominal pain. In the ED patient was found to have right upper lobe consolidation consistent with community acquired pneumonia. She was started on Rocephin and azithromycin and tolerated therapy well. Her dyspnea has significantly improved. Patient did have a rise in her lactate which trended down with aggressive IV fluids and antibiotic therapy. She is able to ambulate today without any shortness of breath. Patient is now hemodynamically stable and ready to be discharged home. She will need to continue taking antibiotics to complete her full course. DISCHARGE MEDICATIONS: Please see below. ALLERGIES: Please see below. PHYSICAL EXAMINATION ON DISCHARGE: VITAL SIGNS: Please see below. General: No acute distress, laying comfortably in bed. HEENT: Moist mucous membranes. Neck: No JVD or lymphadenopathy Cardiac: RRR, No murmurs Pulm: Coarse crackles at the right. No wheezing, no rhonchi Abd: NT/ND + BS Ext: No edema or cyanosis LABORATORY DATA: Please see below. IMAGING: CXR 06/02/16 Impression: Right upper lobe consolidation compatible with acute pneumonia. VTE Prophylaxis ordered?: Yes DISCHARGE CONDITION: Stable DISPOSITION: 01 Home, Self-Care ACTIVITY: As tolerated, may return to routine [employer] in one week. DIET: As tolerated ITEMS TO FOLLOWUP ON OUTPATIENT: DISCHARGE PLAN AND INSTRUCTIONS: 1. Follow-up with PCP in 1-2 weeks. TIME SPENT ON DISCHARGE: Greater than 30 minutes. Vital Signs/I&Os Vital Signs Date Time Temp Pulse Resp B/P Pulse Ox O2 Delivery O2 Flow Rate FiO2 06/04/16 08:00 Room Air 06/04/16 06:00 97.1 81 16 113/69 97 I&O- Last 24 Hours up to 6 AM 06/04/16 06:00 Intake Total 6870 ml Output Total 3000 ml Balance 3870 ml Laboratory Data Labs 24H Laboratory Tests 2 06/04/16 05:34: Anion Gap 9, Blood Urea Nitrogen 6L, Creatinine 0.43L, Sodium Level 145, Potassium Level 4.0, Chloride Level 112H, Carbon Dioxide Level 24, Calcium Level 7.9L, Glomerular Filtration Rate > 60.0, Magnesium Level 1.8 CBC/BMP Laboratory Tests 06/04/16 05:34 Calcium Level 7.9 L, Red Blood Count 3.65 L, Mean Corpuscular Volume 84.2, Mean Corpuscular Hemoglobin 27.6, Mean Corpuscular Hemoglobin Concent 32.8, Red Cell Distribution Width 14.1 Microbiology Microbiology 06/02/16 Blood Culture - Preliminary, Resulted No Growth after 48 hours. All Specime... 06/02/16 Blood Culture - Preliminary, Resulted No Growth after 48 hours. All Specime... 06/02/16 Respiratory Virus Panel (PCR) (ERIKA) - Final, Complete 06/02/16 Group A Streptococcus Screen (ERIKA) - Final, Complete 06/02/16 Influenza Virus Type A Antigen - Final, Complete 06/02/16 Influenza Virus Type B Antigen - Final, Complete 06/02/16 Urine Culture - Final, Complete Medications Scheduled Levofloxacin Hemihydrate (Levaquin) 500 Mg Tab 500 MG PO DAILY Scheduled PRN Acetaminophen (Acetaminophen) 500 Mg Tab 500 MG PO PRN PAIN Guaifenesin/Dextromethorphan (Robitussin Dm 100-10 mg/5Ml) 1 Syp Syp 10 ML PO PRN COUGH Ibuprofen (Ibuprofen) 400 Mg Tab 400 MG PO PRN PAIN Allergies Coded Allergies: No Known Allergies (Unverified , 06/02/16) NITZA DEUTSCH MD Jun 04, 2016 15:12
--- NOTE | 2016-06-04 18:16 | EDDOCDS ---
Physician Documentation [facility] Name: Nikole Stewart Age: 30 yrs Sex: Female : 1985 Arrival Date: 06/02/2016 Time: 12:10 Bed I2 / M2 Private MD: NO PRIMARY PHYSICIAN, . Disposition: 06/02/16 14:40 Hospitalization ordered by Roderick Mariano for Inpatient Admission. Preliminary diagnosis is Pneumonia, unspecified organism - Right Upper Lobe, Elevated Lactic Acid. - Bed requested for 4 [place]. - Status is Inpatient Admission. dls - Condition is Stable. - Problem is new. - Symptoms have improved. Historical: - Allergies: no known allergies; - Home Meds: 1. OTC cough meds (Last dose: 06/02/2016 01:00) 2. Tylenol 325 mg Oral tab 2 tabs as needed (Last dose: 06/02/2016 01:00) 3. Motrin 400 mg Oral tab as needed (Last dose: 06/02/2016 01:00) - PMHx: none; - PSHx: [place] teeth extraction; - Social history: Smoking status: Patient states was never smoker of tobacco. No barriers to communication noted, The patient speaks fluent Amharic. - Family history: Not pertinent. - : The pt / caregiver states he / she is not on anticoagulants. Home medication list is obtained from the patient. - Exposure Risk Screening:: None identified. 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 5 in. (165.10 cm); Pain 6/10; 14:31 BP 118 / 60; Pulse 111; Resp 18; Temp 99.9(O); Pulse Ox 97% on R/A; Pain 4/10; jrd 16:46 BP 116 / 62; Pulse 79; Resp 16; Temp 98.1(O); Pain 3/10; jrd 12:11 Body Mass Index 24.13 (65.77 kg, 165.10 cm) elp MDM: 12:41 Acetaminophen Tablet 975 mg PO once ordered. ef1 12:41 Fluid Challenge ordered. ef1 12:41 Strep Screen, Nursing ordered. ef1 12:41 Obtain sample by nasopharyngeal swab ordered. ef1 12:41 IV Saline Lock ordered. ef1 12:41 NS 0.9% 1000 ml IV at bolus once ordered. ef1 12:41 ketorolac 30 mg IVP once ordered. ef1 12:41 Ondansetron 4 mg IVP once ordered. ef1 12:41 Albuterol-Ipratropium 1 neb Nebulizer every 20 minutes x3 ordered. ef1 12:41 Call Respiratory ordered. ef1 12:41 predniSONE 60 mg PO once; administer with food or milk ordered. ef1 12:41 -Blood Culture (Adults Only), peripheral from different site, or from device/port/PICC ef1 etc. if present ordered. 12:42 -Influenza A&B Rapid Antigen - Nose Ordered. EDMS 12:42 Monoscreen Ordered. EDMS 12:42 CBC with Diff Ordered. EDMS 12:42 Complete Comphrensive Metabolic Ordered. EDMS 12:42 Lactic Acid (Cedeño tube on ice) Ordered. EDMS 12:42 UA Ordered. EDMS 12:42 Urine Culture Ordered. EDMS 12:42 Chest, 2 View (pa\E\lat) Ordered. EDMS 12:43 -Blood Culture Ordered. EDMS 12:48 Call Respiratory complete. jrd 12:50 -Blood Culture (Adults Only), peripheral from different site, or from device/port/PICC jrd etc. if present complete. 12:51 BLOOD CULTURES Ordered. EDMS 12:51 GATS (NEGATIVE STREP SCREEN) Ordered. EDMS 13:30 -Influenza A&B Rapid Antigen - Nose Reviewed. ef1 13:30 Chest, 2 View (pa\E\lat) Reviewed. ef1 13:35 cefTRIAXone 1 grams IVPB once over 30 mins; dilute in 50mL of NS or D5W ordered. ef1 14:17 [facility] Agreement was scanned into [employer] and attached to record. jp5 14:17 Financial registration complete. jp5 14:26 NS 0.9% 1000 ml IV at bolus once ordered. ef1 14:26 CBC with Diff Reviewed. ef1 14:26 Lactic Acid (Cedeño tube on ice) Reviewed. ef1 14:26 Monoscreen Reviewed. ef1 14:26 Complete Comphrensive Metabolic Reviewed. ef1 14:33 BED REQUEST+ADM ordered. EDMS 15:54 Admission / Observation Status ordered. EDMS 15:54 REGULAR DIET ordered. EDMS 15:54 RESPIRATORY PANEL Ordered. EDMS 15:57 LACTIC ACID LEVEL, LACTATE Ordered. EDMS 16:14 SPUTUM CULTURE AND GRAM STAIN Ordered. EDMS 16:34 NS 0.9% 1000ml at 80cc/hr 1000 ml IV at 80 mL/hr Per protocol ordered. dls 16:36 azithromycin 500 mg PO once ordered. dls 19:52 T-Sheet-- Draft Copy was scanned into [employer] and attached to record. klr Administered Medications: 03:20 Drug: Acetaminophen 975 mg [acetaminophen 325 mg tablet (3 tabs)] Route: PO; ms2 12:55 Drug: Albuterol-Ipratropium 1 neb [ipratropium-albuterol 0.5 mg-3 mg(2.5 mg base)/3 mL js11 nebulization soln (1 neb)] Route: Nebulizer; 13:15 Drug: Albuterol-Ipratropium 1 neb [ipratropium-albuterol 0.5 mg-3 mg(2.5 mg base)/3 mL js11 nebulization soln (1 neb)] Route: Nebulizer; 13:24 Drug: NS 0.9% 1000 ml [sodium chloride 0.9 % intravenous solution] Route: IV; Rate: ms2 bolus; Site: right antecubital; 13:25 Drug: Ondansetron 4 mg Route: IVP; Site: right antecubital; ms2 13:26 Drug: ketorolac 30 mg [ketorolac 30 mg/mL (1 mL) injection solution (1 mL)] Route: IVP; ms2 Site: right antecubital; 13:28 Drug: Albuterol-Ipratropium 1 neb [ipratropium-albuterol 0.5 mg-3 mg(2.5 mg base)/3 mL js11 nebulization soln (1 neb)] Route: Nebulizer; 13:28 Drug: predniSONE 60 mg [prednisone 20 mg tablet (3 tabs)] Route: PO; ms2 13:42 Drug: cefTRIAXone 1 grams Route: IVPB; Infused Over: 30 mins; Site: right antecubital; ms2 14:30 Follow up: Response: No Adverse Reaction; IV Status: Completed infusion dls 15:10 Drug: NS 0.9% 1000 ml [sodium chloride 0.9 % intravenous solution] Route: IV; Rate: dls bolus; Site: right antecubital; 16:37 Follow up: IV Intake: 2000ml dls 16:34 Drug: NS 0.9% 1000ml at 80cc/hr 1000 ml Route: IV; Rate: 80 mL/hr; Site: right dls antecubital; 16:36 Drug: azithromycin 500 mg [azithromycin 250 mg tablet (2 tabs)] Route: PO; dls Signatures: Dispatcher [employer] EDSaturnino Riley, RN RN [facility] Wilmer , ROSE Lee RN Jade Purcell RN RN dls Sabina Joseph, PA-C PA-C ef1 Carlos Lorenz, JEANINE MODERN LANGUAGES PROFESSOR d Durga Franks jp5 Catherine Woodruff Michele RN ms2 Robbie Julio js11 The chart was reviewed and I authenticate all verbal orders and agree with the evaluation and treatment provided.Attachments: 14:17 [facility] Payment Agreement jp5 19:52 T-Sheet-- Draft Copy klr Chart Complete [facility]
--- NOTE | 2016-06-04 18:16 | EDDOCDS ---
Physician Documentation [facility] Name: Nikole Stewart Age: 30 yrs Sex: Female : 1985 Arrival Date: 06/02/2016 Time: 12:10 Bed I2 / M2 Private MD: NO PRIMARY PHYSICIAN, . Disposition: 06/02/16 14:40 Hospitalization ordered by Roderick Mariano for Inpatient Admission. Preliminary diagnosis is Pneumonia, unspecified organism - Right Upper Lobe, Elevated Lactic Acid. - Bed requested for 4 [place]. - Status is Inpatient Admission. dls - Condition is Stable. - Problem is new. - Symptoms have improved. Historical: - Allergies: no known allergies; - Home Meds: 1. OTC cough meds (Last dose: 06/02/2016 01:00) 2. Tylenol 325 mg Oral tab 2 tabs as needed (Last dose: 06/02/2016 01:00) 3. Motrin 400 mg Oral tab as needed (Last dose: 06/02/2016 01:00) - PMHx: none; - PSHx: [place] teeth extraction; - Social history: Smoking status: Patient states was never smoker of tobacco. No barriers to communication noted, The patient speaks fluent Azeri. - Family history: Not pertinent. - : The pt / caregiver states he / she is not on anticoagulants. Home medication list is obtained from the patient. - Exposure Risk Screening:: None identified. 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 5 in. (165.10 cm); Pain 6/10; 14:31 BP 118 / 60; Pulse 111; Resp 18; Temp 99.9(O); Pulse Ox 97% on R/A; Pain 4/10; jrd 16:46 BP 116 / 62; Pulse 79; Resp 16; Temp 98.1(O); Pain 3/10; jrd 12:11 Body Mass Index 24.13 (65.77 kg, 165.10 cm) elp MDM: 12:41 Acetaminophen Tablet 975 mg PO once ordered. ef1 12:41 Fluid Challenge ordered. ef1 12:41 Strep Screen, Nursing ordered. ef1 12:41 Obtain sample by nasopharyngeal swab ordered. ef1 12:41 IV Saline Lock ordered. ef1 12:41 NS 0.9% 1000 ml IV at bolus once ordered. ef1 12:41 ketorolac 30 mg IVP once ordered. ef1 12:41 Ondansetron 4 mg IVP once ordered. ef1 12:41 Albuterol-Ipratropium 1 neb Nebulizer every 20 minutes x3 ordered. ef1 12:41 Call Respiratory ordered. ef1 12:41 predniSONE 60 mg PO once; administer with food or milk ordered. ef1 12:41 -Blood Culture (Adults Only), peripheral from different site, or from device/port/PICC ef1 etc. if present ordered. 12:42 -Influenza A&B Rapid Antigen - Nose Ordered. EDMS 12:42 Monoscreen Ordered. EDMS 12:42 CBC with Diff Ordered. EDMS 12:42 Complete Comphrensive Metabolic Ordered. EDMS 12:42 Lactic Acid (Cedeño tube on ice) Ordered. EDMS 12:42 UA Ordered. EDMS 12:42 Urine Culture Ordered. EDMS 12:42 Chest, 2 View (pa\E\lat) Ordered. EDMS 12:43 -Blood Culture Ordered. EDMS 12:48 Call Respiratory complete. jrd 12:50 -Blood Culture (Adults Only), peripheral from different site, or from device/port/PICC jrd etc. if present complete. 12:51 BLOOD CULTURES Ordered. EDMS 12:51 GATS (NEGATIVE STREP SCREEN) Ordered. EDMS 13:30 -Influenza A&B Rapid Antigen - Nose Reviewed. ef1 13:30 Chest, 2 View (pa\E\lat) Reviewed. ef1 13:35 cefTRIAXone 1 grams IVPB once over 30 mins; dilute in 50mL of NS or D5W ordered. ef1 14:17 [facility] [place] Payment Agreement was scanned into [employer] and attached to record. jp5 14:17 Financial registration complete. jp5 14:26 NS 0.9% 1000 ml IV at bolus once ordered. ef1 14:26 CBC with Diff Reviewed. ef1 14:26 Lactic Acid (Cedeño tube on ice) Reviewed. ef1 14:26 Monoscreen Reviewed. ef1 14:26 Complete Comphrensive Metabolic Reviewed. ef1 14:33 BED REQUEST+ADM ordered. EDMS 15:54 Admission / Observation Status ordered. EDMS 15:54 REGULAR DIET ordered. EDMS 15:54 RESPIRATORY PANEL Ordered. EDMS 15:57 LACTIC ACID LEVEL, LACTATE Ordered. EDMS 16:14 SPUTUM CULTURE AND GRAM STAIN Ordered. EDMS 16:34 NS 0.9% 1000ml at 80cc/hr 1000 ml IV at 80 mL/hr Per protocol ordered. dls 16:36 azithromycin 500 mg PO once ordered. dls 19:52 T-Sheet-- Draft Copy was scanned into [employer] and attached to record. klr Administered Medications: 03:20 Drug: Acetaminophen 975 mg [acetaminophen 325 mg tablet (3 tabs)] Route: PO; ms2 12:55 Drug: Albuterol-Ipratropium 1 neb [ipratropium-albuterol 0.5 mg-3 mg(2.5 mg base)/3 mL js11 nebulization soln (1 neb)] Route: Nebulizer; 13:15 Drug: Albuterol-Ipratropium 1 neb [ipratropium-albuterol 0.5 mg-3 mg(2.5 mg base)/3 mL js11 nebulization soln (1 neb)] Route: Nebulizer; 13:24 Drug: NS 0.9% 1000 ml [sodium chloride 0.9 % intravenous solution] Route: IV; Rate: ms2 bolus; Site: right antecubital; 13:25 Drug: Ondansetron 4 mg Route: IVP; Site: right antecubital; ms2 13:26 Drug: ketorolac 30 mg [ketorolac 30 mg/mL (1 mL) injection solution (1 mL)] Route: IVP; ms2 Site: right antecubital; 13:28 Drug: Albuterol-Ipratropium 1 neb [ipratropium-albuterol 0.5 mg-3 mg(2.5 mg base)/3 mL js11 nebulization soln (1 neb)] Route: Nebulizer; 13:28 Drug: predniSONE 60 mg [prednisone 20 mg tablet (3 tabs)] Route: PO; ms2 13:42 Drug: cefTRIAXone 1 grams Route: IVPB; Infused Over: 30 mins; Site: right antecubital; ms2 14:30 Follow up: Response: No Adverse Reaction; IV Status: Completed infusion dls 15:10 Drug: NS 0.9% 1000 ml [sodium chloride 0.9 % intravenous solution] Route: IV; Rate: dls bolus; Site: right antecubital; 16:37 Follow up: IV Intake: 2000ml dls 16:34 Drug: NS 0.9% 1000ml at 80cc/hr 1000 ml Route: IV; Rate: 80 mL/hr; Site: right dls antecubital; 16:36 Drug: azithromycin 500 mg [azithromycin 250 mg tablet (2 tabs)] Route: PO; dls Signatures: Dispatcher [employer] EDSaturnino Riley, RN RN [facility] [place] , ROSE Lee RN Jade Purcell RN RN dls Sabina Joseph, PA-C PA-C ef1 Carlos Lorenz, JEANINE FAUCET POLISHER d Durga Franks jp5 Catherine Woodruff Michele RN ms2 Robbie Julio js11 The chart was reviewed and I authenticate all verbal orders and agree with the evaluation and treatment provided.Attachments: 14:17 [facility] Payment Agreement jp5 19:52 T-Sheet-- Draft Copy klr Chart Complete [facility]
--- NOTE | 2016-06-04 18:16 | EDDOCDS ---
Nurse's Notes [facility] Name: Nikole Stewart Age: 30 yrs Sex: Female : 1985 Arrival Date: 06/02/2016 Time: 12:10 Bed I2 / M2 Private MD: NO PRIMARY PHYSICIAN, . Diagnosis: Pneumonia, unspecified organism-Right Upper Lobe, Elevated Lactic Acid Presentation: 06/02 12:13 Presenting complaint: Patient states: Cough with fever and chills for 8 days. Adult dwg Sepsis Screening: The patient does not have new or worsening altered mentation. Patient's respiratory rate is less than 22. Systolic blood pressure is greater than 100. Patient has a qSOFA score of 0- Negative Sepsis Screen. Suicide/Homicide risk assessment- the patient denies having any suicidal and/or homicidal ideations and does not present with any other emotional, behavioral or mental health complaints. 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 Transition of care: patient was not received from another setting of care. 12:13 Method Of Arrival: Walkin/Carried/Asstd dwg 12:13 Acuity: NILSA Level 3 mlb1 12:27 Acuity level changed due to complexity of care. mlb1 Triage Assessment: 12:16 General: Appears uncomfortable. Pain: Pain currently is 7 out of 10 on a pain scale. Pt dwg Declines HIV testing. 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 OTC cough meds (Last dose: 06/02/2016 01:00) 2. Tylenol 325 mg Oral tab 2 tabs as needed (Last dose: 06/02/2016 01:00) 3. Motrin 400 mg Oral tab as needed (Last dose: 06/02/2016 01:00) - PMHx: none; - PSHx: [place] teeth extraction; - Social history: Smoking status: Patient states was never smoker of tobacco. No barriers to communication noted, The patient speaks fluent Romansh. - Family history: Not pertinent. - : The pt / caregiver states he / she is not on anticoagulants. Home medication list is obtained from the patient. - Exposure Risk Screening:: None identified. Screenin:31 Screening information is obtained from the patient. Fall risk: No risks identified. dls Assistance ADL's: requires no assistance with activities of daily living. Abuse/DV Screen: The patient / caregiver reports he/she is: not in a situation that causes fear, pain or injury. Nutritional screening: No deficits noted. Advance Directives: Currently, there is no health care proxy. There is no active DNR order. There is no living will. 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 Advance directive information has not previously been placed in an [facility] medical record. home support is adequate. Assessment: 13:30 General: Appears in no apparent distress, Behavior is cooperative. General: receiving ms2 nebulizer tx's. General: harsh cough noted. Neurological: Level of Consciousness is awake, alert, obeys commands. Neurological: Level of Consciousness is awake, alert, obeys commands. Respiratory: No deficits noted. Airway is patent Respiratory effort is even, unlabored, Respiratory pattern is regular, symmetrical. Derm: Skin is pink, warm & dry. Musculoskeletal: Range of motion intact in all extremities. 14:28 General: IV bolus infusing site right antecubital remains patent and clear pt states dls feeling improved.. 14:58 General: Dr Mariano here to examine pt and write admission orders.. dls 16:38 General: IV bolus infused site remains cleat pt ambulatory to bathroom urine spec dls obtained as well as respiratory panel. NS infusing \T\ 80cc /hr per admission orders pt medicated po also per admission order. Pt has occasional cough sputum cup given for spec. Vital signs remain stable awaiting bed assingment.. Vital Signs: 12:11 BP 148 / 80; Pulse 99; Resp 18; Temp 102.0(O); Pulse Ox 99% ; Weight 65.77 kg; Height 5 elp ft. 5 in. (165.10 cm); Pain 6/10; 14:31 BP 118 / 60; Pulse 111; Resp 18; Temp 99.9(O); Pulse Ox 97% on R/A; Pain 4/10; jrd 16:46 BP 116 / 62; Pulse 79; Resp 16; Temp 98.1(O); Pain 3/10; jrd 12:11 Body Mass Index 24.13 (65.77 kg, 165.10 cm) elp Vitals: 12:11 Log In Time: June 02, 2016 at 12:09. elp 12:51 Strep Screen is obtained and tested: Negative, a GATSNEG culture is ordered in [facility] rs3 and sent. ED Course: 12:10 Patient visited by Marisa Fonseca PCA. elp 12:10 Patient moved to Waiting elp 12:11 NO PRIMARY PHYSICIAN, . is Private Physician. elp 12:12 Patient visited by Marisa Fonseca PCA. elp 12:12 Patient moved to Pre RCE elp 12:14 Triage Initiated dwg 12:19 Patient moved to Triage 3 rs3 12:26 Sabina Joseph PA-C is PHCP. ef1 12:26 Makenna Childs MD is Attending Physician. ef1 12:28 Patient visited by Sabina Joseph PA-C. ef1 12:47 Patient moved to I2 / M2 rn1 12:51 -Influenza A&B Rapid Antigen - Nose Sent. rs3 12:59 Patient visited by Zaid Delacruz,ROSE. ms2 13:25 Chest, 2 View (pa\E\lat) Returned. EDMS 13:28 Inserted peripheral IV: 20gauge IV in left antecubital area Patient tolerated the ms2 procedure well. No procedures done that require assistance. 13:30 Patient visited by Sabina Joseph PA-C. ef1 13:30 -Blood Culture Sent. ms2 13:30 BLOOD CULTURES Sent. ms2 13:31 Lactic Acid (Cedeño tube on ice) Sent. ms2 13:31 Complete Comphrensive Metabolic Sent. ms2 13:31 CBC with Diff Sent. ms2 13:31 Monoscreen Sent. ms2 13:35 Patient visited by Zaid Delacruz,ROSE. ms2 14:06 Patient visited by Sabina Joseph PA-C. ef1 14:17 [facility] Payment Agreement was scanned into [employer] and attached to record. jp5 14:31 Patient name changed from Nikole\S\\S\Stewart\S\ to Nikole\S\Samina\S\Stewart. EDMS 14:31 The patient / caregiver is instructed regarding the plan of care and ED course. dls 14:32 Patient visited by Sabina Joseph PA-C. ef1 14:32 Patient visited by Carlos Lorenz PCA. jrd 14:39 Roderick Mariano is Hospitalizing Provider. ef1 16:31 RESPIRATORY PANEL Sent. dls 16:47 Patient visited by Carlos Lorenz PCA. jrd 19:52 T-Sheet-- Draft Copy was scanned into [employer] and attached to record. klr Administered Medications: 03:20 Drug: Acetaminophen 975 mg [acetaminophen 325 mg tablet (3 tabs)] Route: PO; ms2 12:55 Drug: Albuterol-Ipratropium 1 neb [ipratropium-albuterol 0.5 mg-3 mg(2.5 mg base)/3 mL js11 nebulization soln (1 neb)] Route: Nebulizer; 13:15 Drug: Albuterol-Ipratropium 1 neb [ipratropium-albuterol 0.5 mg-3 mg(2.5 mg base)/3 mL js11 nebulization soln (1 neb)] Route: Nebulizer; 13:24 Drug: NS 0.9% 1000 ml [sodium chloride 0.9 % intravenous solution] Route: IV; Rate: ms2 bolus; Site: right antecubital; 13:25 Drug: Ondansetron 4 mg Route: IVP; Site: right antecubital; ms2 13:26 Drug: ketorolac 30 mg [ketorolac 30 mg/mL (1 mL) injection solution (1 mL)] Route: IVP; ms2 Site: right antecubital; 13:28 Drug: Albuterol-Ipratropium 1 neb [ipratropium-albuterol 0.5 mg-3 mg(2.5 mg base)/3 mL js11 nebulization soln (1 neb)] Route: Nebulizer; 13:28 Drug: predniSONE 60 mg [prednisone 20 mg tablet (3 tabs)] Route: PO; ms2 13:42 Drug: cefTRIAXone 1 grams Route: IVPB; Infused Over: 30 mins; Site: right antecubital; ms2 14:30 Follow up: Response: No Adverse Reaction; IV Status: Completed infusion dls 15:10 Drug: NS 0.9% 1000 ml [sodium chloride 0.9 % intravenous solution] Route: IV; Rate: dls bolus; Site: right antecubital; 16:37 Follow up: IV Intake: 2000ml dls 16:34 Drug: NS 0.9% 1000ml at 80cc/hr 1000 ml Route: IV; Rate: 80 mL/hr; Site: right dls antecubital; 16:36 Drug: azithromycin 500 mg [azithromycin 250 mg tablet (2 tabs)] Route: PO; dls Intake: 16:37 IV: 2000.00ml; Total: 2000.00ml. dls RT: 12:55 Initial Med Neb Given as ordered Patient was instructed and evaluated on procedure js11 Patient tolerated procedure well without adverse effect. Respiratory: Breath sounds are diminished bilaterally. 13:15 Subsequent Med Neb Given as ordered Patient tolerated procedure well without adverse js11 effect. Respiratory: Breath sounds are diminished bilaterally. 13:28 Subsequent Med Neb Given as ordered Patient tolerated procedure well without adverse js11 effect. Respiratory: Breath sounds are diminished bilaterally. Order Results: Lab Order: -Influenza A&B Rapid Antigen - Nose; SPEC'M 06/02/16 12:43 Test: INFLUENZA A RAPID SCR by ICA; Value: INFLUENZA A RESULTS NEGATIVE; Status: F Test: INFLUENZA A RAPID SCR by ICA; Value: Comments:; Status: F Test: INFLUENZA B RAPID SCR by ICA; Value: INFLUENZA B RESULTS NEGATIVE; Status: F Test Note: ; The Influenza test is a direct rapid immunoassay for the qualitative detection of Influenza viral antigen. Cell culture (Viral Culture) testing should be considered to confirm NEGATIVE results and to assist in detecting other viruses that can provide similar clinical symptoms. Please contact the lab within 24 hours ([phone]) if confirmatory testing is desired. Lab Order: Monoscreen; SPEC'M 06/02/16 13:16 Test: MONO SCRN; Value: NEGATIVE; Range: NEGATIVE; Status: F Lab Order: CBC with Diff; SPEC'M 06/02/16 13:16 Test: WHITE BLOOD COUNT; Value: 7.7; Range: 4.0-10.0; Units: K/mm3; Status: F Test: RED BLOOD COUNT; Value: 4.67; Range: 4.00-5.40; Units: M/mm3; Status: F Test: HEMOGLOBIN; Value: 13.0; Range: 12.0-16.0; Units: g/dl; Status: F Test: HEMATOCRIT; Value: 39.0; Range: 36.0-47.0; Units: %; Status: F Test: MEAN CORPUSCULAR VOLUME; Value: 83.5; Range: 80.0-96.0; Units: fl; Status: F Test: MEAN CORPUSCULAR HEMOGLOBIN; Value: 27.8; Range: 27.0-33.0; Units: pg; Status: F Test: MEAN CORPUSCULAR HGB CONC; Value: 33.3; Range: 32.0-36.5; Units: g/dl; Status: F Test: RED CELL DISTRIBUTION WIDTH; Value: 13.7; Range: 11.5-14.5; Units: %; Status: F Test: PLATELET COUNT, AUTOMATED; Value: 196; Range: 150-450; Units: k/mm3; Status: F Test: NEUTROPHILS %; Value: 67.8; Range: 36.0-66.0; Abnormal: Above high normal; Units: %; Status: F Test: LYMPH %; Value: 18.9; Range: 24.0-44.0; Abnormal: Below low normal; Units: %; Status: F Test: MONO %; Value: 9.6; Range: 0.0-5.0; Abnormal: Above high normal; Units: %; Status: F Test: EOS %; Value: 0.9; Range: 0.0-3.0; Units: %; Status: F Test: BASO %; Value: 0.5; Range: 0.0-1.0; Units: %; Status: F Test: LARGE UNSTAINED CELL %; Value: 2.2; Range: 0.0-4.0; Units: %; Status: F Test: NEUTROPHILS #; Value: 5.2; Range: 1.8-7.7; Units: K/mm3; Status: F Test: LYMPH #; Value: 1.6; Range: 1.5-4.5; Units: K/mm3; Status: F Test: MONO #; Value: 0.7; Range: 0.0-0.8; Units: K/mm3; Status: F Test: EOS #; Value: 0.1; Range: 0.0-0.50; Units: K/mm3; Status: F Test: BASO #; Value: 0.0; Range: 0.0-0.2; Units: K/mm3; Status: F Test: LARGE UNSTAINED CELL #; Value: 0.2; Range: 0.0-0.4; Units: K/mm3; Status: F Lab Order: Complete Comphrensive Metabolic; SPEC'M 06/02/16 13:16 Test: GLUCOSE, FASTING; Value: 105; Range: 70-105; Units: MG/DL; Status: F Test: BLOOD UREA NITROGEN; Value: 12; Range: 7-18; Units: MG/DL; Status: F Test: CREATININE FOR GFR; Value: 0.67; Range: 0.55-1.02; Units: MG/DL; Status: F Test: SODIUM LEVEL; Range: 136-145; Units: MEQ/L; Status: I Test: POTASSIUM SERUM; Range: 3.5-5.1; Units: MEQ/L; Status: I Test: CHLORIDE LEVEL; Range: 98-107; Units: MEQ/L; Status: I Test: CARBON DIOXIDE LEVEL; Range: 21-32; Units: MEQ/L; Status: I Test: ANION GAP; Range: 8-16; Units: MEQ/L; Status: I Test: CALCIUM LEVEL; Range: 8.5-10.1; Units: MG/DL; Status: I Test: AST/SGOT; Range: 15-37; Units: U/L; Status: I Test: ALT/SGPT; Range: 12-78; Units: U/L; Status: I Test: ALKALINE PHOSPHATASE; Range: 45-117; Units: U/L; Status: I Test: BILIRUBIN,TOTAL; Range: 0.2-1.0; Units: MG/DL; Status: I Test: TOTAL PROTEIN; Range: 6.4-8.2; Units: GM/DL; Status: I Test: ALBUMIN; Range: 3.2-5.2; Units: GM/DL; Status: I Test: ALBUMIN/GLOBULIN RATIO; Range: 1.00-1.93; Status: I Test: GLOMERULAR FILTRATION RATE; Value: > 60.0; Range: >60; Status: F Test: SODIUM LEVEL; Value: 138; Range: 136-145; Units: MEQ/L; Status: F Test: POTASSIUM SERUM; Value: 3.8; Range: 3.5-5.1; Units: MEQ/L; Status: F Test: CHLORIDE LEVEL; Value: 99; Range: 98-107; Units: MEQ/L; Status: F Test: CARBON DIOXIDE LEVEL; Value: 27; Range: 21-32; Units: MEQ/L; Status: F Test: ANION GAP; Value: 12; Range: 8-16; Units: MEQ/L; Status: F Test: CALCIUM LEVEL; Value: 9.0; Range: 8.5-10.1; Units: MG/DL; Status: F Test: AST/SGOT; Value: 15; Range: 15-37; Units: U/L; Status: F Test: ALT/SGPT; Value: 23; Range: 12-78; Units: U/L; Status: F Test: ALKALINE PHOSPHATASE; Value: 93; Range: 45-117; Units: U/L; Status: F Test: BILIRUBIN,TOTAL; Value: 0.2; Range: 0.2-1.0; Units: MG/DL; Status: F Test: TOTAL PROTEIN; Value: 7.6; Range: 6.4-8.2; Units: GM/DL; Status: F Test: ALBUMIN; Value: 3.8; Range: 3.2-5.2; Units: GM/DL; Status: F Test: ALBUMIN/GLOBULIN RATIO; Value: 1.00; Range: 1.00-1.93; Status: F Test Note: ; Units are mL/min/1.73 m2 Chronic Kidney Disease Staging per NKF: Stage I & II GFR >=60 Normal to Mildly Decreased Stage III GFR 30-59 Moderately Decreased Stage IV GFR 15-29 Severely Decreased Stage V GFR <15 Very Little GFR Left ESRD GFR <15 on WELDER FITTER ARC Lab Order: Lactic Acid (Cedeño tube on ice); SPEC'M 06/02/16 13:16 Test: LACTIC ACID LEVEL, LACTATE; Value: 2.3; Range: 0.4-2.0; Abnormal: Above upper panic limits; Units: MMOL/L; Status: F Lab Order: UA; SPEC'M 06/02/16 16:15 Test: APPEARANCE, URINE; Value: CLEAR; Range: CLEAR; Status: F Test: COLOR, URINE; Value: YELLOW; Range: YELLOW; Status: F Test: PH,URINE; Value: 5.0; Range: 5.0-9.0; Units: UNITS; Status: F Test: SPECIFIC GRAVITY URINE AUTO; Value: 1.006; Range: 1.002-1.035; Status: F Test: PROTEIN, URINE AUTO; Value: NEGATIVE; Range: NEGATIVE; Units: mg/dL; Status: F Test: GLUCOSE, URINE (UA) AUTO; Value: NEGATIVE; Range: NEGATIVE; Units: mg/dL; Status: F Test: KETONE, URINE AUTO; Value: NEGATIVE; Range: NEGATIVE; Units: mg/dL; Status: F Test: UROBILINOGEN, URINE AUTO; Value: 0.2; Range: 0.0-2.0; Units: mg/dL; Status: F Test: BILIRUBIN, URINE AUTO; Value: NEGATIVE; Range: NEGATIVE; Status: F Test: NITRITE, URINE AUTO; Value: NEGATIVE; Range: NEGATIVE; Status: F Test: LEUKOCYTE ESTERASE, URINE AUTO; Value: NEGATIVE; Range: NEGATIVE; Status: F Test: BLOOD, URINE BLOOD; Value: NEGATIVE; Range: NEGATIVE; Status: F Test: WBC, URINE AUTO; Value: 1; Range: 0-3; Units: /HPF; Status: F Test: RBC, URINE AUTO; Value: 3; Range: 0-3; Units: /HPF; Status: F Test: BACTERIA, URINE AUTO; Value: 1+; Range: NEGATIVE; Abnormal: Above high normal; Status: F Test: SQUAMOUS EPITHELIAL CELL UR AU; Value: 3; Range: 0-6; Units: /HPF; Status: F Test: MUCUS, URINE; Value: SMALL; Range: NEGATIVE; Status: F Test: HYALINE CAST, URINE AUTO; Value: 0; Range: 0-1; Units: /LPF; Status: F Radiology Order: Chest, 2 View (pa\E\lat) Test: Chest, 2 View (pa\E\lat) REASON FOR EXAMINATION: Cough; Clinical: Acute cough.; ; Technique: PA and lateral.; ; Findings:; Basilar right upper lobe consolidation compatible with acute pneumonia. Cardiac; silhouette is normal. No effusion. No pneumothorax. Left hemithorax clear.; Skeletal structures intact.; ; Impression:; Right upper lobe consolidation compatible with acute pneumonia.; ; ; Signed by; Reinaldo Hudson MD 06/02/2016 01:09 P; Outcome: 14:40 Decision to Hospitalize by Provider. ef1 17:13 Discharge Assessment: Patient awake, alert and oriented x 3. No cognitive and/or dls functional deficits noted. Patient verbalized understanding of disposition instructions. patient administered narcotics - no. The following High Risk Discharge criteria are identified: None. Admitted to Med/Surg accompanied by tech, via stretcher, with chart. Condition: stable Condition: improved. Discharge instructions given to. No special radiology studies were completed. Admission hand-off: Report Faxed Fax receipt verified by [place]. Property :Personal belongings accompany Pt. 17:15 Patient left the ED. dls Signatures: Dispatcher [facility] EDCT Zaid Delacruz RN RN ms2 Saturnino Reddy RN RN Jade Mcmahon RN RN dls Cr Yousif RN RN mlb1 Sabina Joseph, PA-C PA-C ef1 Kady SandersRN RN rs3 Robbie Julio js11 Marisa Fonseca, MODULAR HOME CREW MEMBER MODULAR HOME CREW MEMBER Carlos Hilario, MODULAR HOME CREW MEMBER MODULAR HOME CREW MEMBER Benito Hughes rn1 Durga Franks jp5 Catherine Woodruff Corrections: (The following items were deleted from the chart) 12:27 12:13 Acuity: NILSA Level 5 dwg mlb1 Chart Complete [facility]
== END 2016-06-04 11:32 | disposition home or self-care (01) | DRG 195 ==
LOC: M ED 12:10 → M ED INP 15:47 → M MSPAV 17:22
PROVIDERS: ADMIT Internal Medicine; ATTEND Internal Medicine
DX: J18.9 Pneumonia, unspecified organism (principal)